=== PATIENT | female | born 1950 | race Caucasian/White ===

== ENCOUNTER → 2017-11-14 | Outpatient (CLI) | payer OTHER ==
[~2017-11-14] MED LIST: ACET-1325; ATEN50TA8 PO; OFLO0.3S OP; PRED1SUS3 OPL; RANI300T PO
--- NOTE | 2017-11-15 07:53 | MAMMOGRAPHY REPORT ---
BILATERAL DIGITAL SCREENING MAMMOGRAM TOMOSYNTHESIS WITH CAD: 11/14/2017 CLINICAL HISTORY: Routine screening. Patient has no complaints. TECHNIQUE: Breast tomosynthesis in addition to standard 2D mammography was performed. Current study was also evaluated with a Computer Aided Detection (CAD) system. COMPARISON: Comparison is made to exams dated: 09/21/2016 mammogram, 09/19/2015 mammogram, 4 mammogram, 09/13/2013 mammogram, 09/12/2012 mammogram, and 09/02/2011 mammogram - [facility]. BREAST COMPOSITION: There are scattered areas of fibroglandular density in both breasts. FINDINGS: The parenchymal pattern is unchanged. No developing mass, architectural distortion or clus ter of suspicious microcalcifications is seen in either breast. IMPRESSION: ACR BI-RADS CATEGORY 2: BENIGN There is no mammographic evidence of malignancy. A 1 year screening mammogram is recommended. The pa tient will receive written notification of the results. Approximately 10% of breast cancers are not detected with mammography. A negative mammographic report should not delay biopsy if a clinically suggestive mass is present. Kelsey Dsouza M.D. ay/:11/14/2017 15:24:46 Acute Care Occupational Therapist: Chantell Espinoza, [facility] letter sent: Normal 1/2 BI-RADS Code: ACR BI-RADS Category 2: Benign
== END | disposition home or self-care (01) ==
LOC: C.MAMM 14:32
PROVIDERS: ATTEND Family Medicine
DX: Z12.31 Encounter for screening mammogram for malignant neoplasm of breast (principal)

== ENCOUNTER → 2017-11-22 | Outpatient (CLI) | payer OTHER ==
[2017-11-22 12:37] LABS: ALBUMIN 3.8 gm/dl (3.4-5.0); ALT/SGPT 33 U/L (12-78); BLOOD UREA NITROGEN 16 mg/dl (7-18); CALCIUM 9.2 mg/dl (8.5-10.1); CARBON DIOXIDE 30 mmol/L (21-32); CHOLESTEROL 176 mg/dl (0-200); CREATININE 0.75 mg/dl (0.60-1.20); GLUCOSE 77 mg/dl (70-99); POTASSIUM 4.1 mmol/L (3.5-5.1); SODIUM 140 mmol/L (136-145)
[2017-11-22 12:40] LABS: ALKALINE PHOSPHATASE 48 U/L (45-117); AST/SGOT 31 U/L (15-37); LDL CHOLESTEROL CALCULATED 79 mg/dl; TOTAL PROTEIN 6.9 gm/dl (6.4-8.2)
== END | disposition home or self-care (01) ==
LOC: C.LAB 11:06
PROVIDERS: ATTEND Family Medicine
DX: Z00.00 Encounter for general adult medical examination without abnormal findings (principal)

== ENCOUNTER 2023-08-17 10:33 | Inpatient (IN) ==
--- NOTE | 2023-08-17 11:20 | Emergency Department Note ---
Impression & Plan Neutropenia with fever ED Provider Note NAME: LEIGHANN HARTMAN AGE: 73 SEX: F : 1950 ARRIVES VIA: Walk-In INFORMANT: Patient, ED PROVIDER(S): Bryce Chan MD CHIEF COMPLAINT: Fever HPI: This is a 73-year-old female with history of B-cell lymphoma currently on chemotherapy presenting for fever. Patient also complains of weakness but otherwise no significant other symptoms. She states that she has a fever up to 101.3 as reported by the . This via oral thermometer. He notes other temperatures of about 100 as well as 99 yesterday as well. She take antipyretics yesterday helping her temperature down. This morning she did not take any antipyretics and noted temperatures at 99. She does not note any shaking chills, nausea, vomiting, diarrhea, shortness breath, chest pain, dysuria, hematuria, sinus congestion, sore throat. ROS: See above HPI for pertinent positives & negatives. A total of 10 systems reviewed and were otherwise negative. PAST MEDICAL HISTORY: See Below PAST SURGICAL HISTORY: See Below FAMILY HISTORY: See Below SOCIAL HISTORY: See Below HOME MEDICATIONS: See Below ALLERGIES: See Below VITALS: See Below PHYSICAL EXAMINATION: General: resting comfortably in no acute distress Head: Normocephalic and atraumatic Eyes: Normal inspection, extraocular muscles intact, no conjunctival pallor Ear, nose, throat: Normal external exam Neck: Normal range of motion Respiratory: Patient is in no respiratory distress, lungs clear to auscultation bilaterally Cardiovascular: RRR without murmur appreciated, left chest port noted, no erythema or pus surrounding GI: soft, nontender, no guarding or rebound Extremities: pulses intact with good cap refills, no LE pitting edema or calf tenderness Neuro: The patient awake and alert, appropriately conversive,no focal decifits Skin: Warm, dry, and intact MEDICAL DECISION MAKING: This is a 73 YO F presenting for fever. Patient does have B-cell lymphoma, recently started chemotherapy about 9 days ago. Patient is within window for new pain and fever. We will get further work-up to evaluate for neutropenia and any signs of infection. Blood cultures are sent including cultures from her new port. Patient's blood does confirm neutropenia, WBC count 0.8, ANC is 0.25. Otherwise blood work was reassuring. CBC does actually confirm Toxic granulation and Dohle bodies. Patient's viral panel is negative at this time. Pending urinalysis. Chest Xray reviewed by me, showing no pneumothorax, focal opacity, but does show pleural effusion bilaterally, small We will admit patient for neutropenic fever at this time. Triage Nursing notes reviewed. Prior medical records reviewed Vital Signs: reviewed and remarkable for no significant abnormalities Differential diagnosis: Neutropenic fever, sepsis ER treatment provided: See below Diagnostics interpreted by me: ECG: ECG reviewed by me with normal sinus rhythm, rate of 99, normal axis, normal DC, normal QRS, normal QTc, no ST segment elevations consistent with STEMI criteria Cardiac Monitoring: An order was placed for continuous cardiac monitoring. The monitor shows a rate of 76 with sinus rhythm. Laboratory studies: As stated above and show below. Imaging studies: See below. Radiographic imaging was reviewed by myself Consultation(s): None Past Med/Surg History Medical History (Updated 08/17/23 @ 19:41 by Bryce Chan MD) Arthritis Chronic steroid use GERD (gastroesophageal reflux disease) History of COVID-19 05/06/23 tested positive, moderate symptoms and treated with paxlovid. no current issues. Lymphoma dx 07/2023 Macular degeneration Papilloma of breast hx Surgical History (Updated 08/09/23 @ 08:20 by Roshni Phillips RN) H/O colonoscopy History of biopsy abdominal biopsy with CT 07/2023 at [facility] [place] History of surgery exc of papilloma Port-A-Cath in place (08/09/23) Insertion Access Port Left Subclavian with Fluoroscopy(Left) - Ruslan Simpson DO Family History Mother Colorectal cancer Father Diabetes Hypertension Stroke Social History Smoking Status: Never smoker Second Hand Exposure: No; Do You Dip or Chew Tobacco: No; Hx Alcohol Use: No Hx Substance Use: No Preferred Language: Hebrew Communication Ability: Effective Technical Project Lead Required: No Beliefs That Will Affect Care: None marital status: Current Living Situation: Spouse current occupational status: retired How many Children do You have: 2 Other Information That Helps Us Care for You: No Feels Safe at Home: Yes Safety Concerns: Feels Safe At This Time Diet: regular during the past year weight has: remained stable Assistive Devices: Glasses Allergies Allergies Allergy/AdvReac Type Severity Reaction Status Date / Time No Known Allergies Allergy Mild Verified 08/17/23 14:29 Home Meds Home Medications Medication Instructions Recorded Confirmed esomeprazole magnesium 40 mg 40 mg PO QAM 07/10/23 08/17/23 capsule,delayed release magnesium oxide 400 mg PO QAM 07/10/23 08/17/23 allopurinol 300 mg tablet See Rx Instructions .Route .COMPLEX 08/17/23 08/17/23 furosemide 20 mg tablet 20 mg PO .TUESDAY AND Tuesday08/17/23 08/17/23 Results & Data (ED) Vital Signs Vital Signs - 24 hr 08/17/23 10:48 08/17/23 11:21 08/17/23 10:50 Temperature 36.6 C Temperature Source Temporal Artery Scan Pulse Rate 85 87 85 Pulse Rate from SpO2 Sensor 85 Respiratory Rate 24 16 Respiratory Effort / Characteristics Non-Labored Respiratory Depth Normal Respiratory Pattern Regular Blood Pressure 128/70 128/70 Blood Pressure Mean 89 89 Pulse Oximetry 99 98 Oxygen Delivery Method Room Air Sepsis Recent Fever Within 48 Hours Yes Sepsis New/Unexplained Change in Mental Status N/A Sepsis Action Taken by Nursing No Action Required 08/17/23 12:24 Temperature Temperature Source Pulse Rate 87 Pulse Rate from SpO2 Sensor 87 Respiratory Rate 17 Respiratory Effort / Characteristics Respiratory Depth Respiratory Pattern Blood Pressure 134/70 Blood Pressure Mean 91 Pulse Oximetry 99 Oxygen Delivery Method Sepsis Recent Fever Within 48 Hours Sepsis New/Unexplained Change in Mental Status Sepsis Action Taken by Nursing Laboratory Data 08/17/23 11:31 08/17/23 11:31 Lab Results 08/17/23 08/17/23 08/17/23 Range/Units 11:31 11:31 11:35 WBC 0.80 L* (4.8-10.8) K/ul RBC 3.03 L (4.20-5.40) M/uL Hgb 9.5 L (12.0-16.0) g/dl Hct 28.4 L (37.0-47.0) % MCV 93.7 (80.0-100.0) fL MCH 31.4 (25.0-34.0) pg MCHC 33.5 (32.0-36.0) g/dL RDW Std Deviation 48.8 H (36.4-46.3) fL RDW Coeff of Elena 14.2 (11.5-14.5) % Plt Count 125 L (130-400) K/uL MPV 11.5 (9.4-12.4) fL Immature Gran % (Auto) 6.3 % Neut % (Auto) 31.1 % Lymph % (Auto) 37.5 % Leslie % (Auto) 16.3 % Eos % (Auto) 6.3 % Baso % (Auto) 2.5 % Neut # (Auto) 0.25 L* (1.40-6.50) K/uL Lymph # (Auto) 0.30 L (1.20-3.40) K/uL Leslie # (Auto) 0.13 (0.11-0.59) K/uL Eos # (Auto) 0.05 (0.00-0.50) K/uL Baso # (Auto) 0.02 (0.00-0.20) K/uL Immature Gran # (Auto) 0.05 (0.01-0.20) K/uL Toxic Granulation 1+ Dohle Bodies 2+ Sodium 134 L (136-145) mmol/L Potassium 4.0 (3.5-5.1) mmol/L Chloride 101 (98-107) mmol/L Carbon Dioxide 26 (21-32) mmol/L Anion Gap 7 (3-11) BUN 17 (6-23) mg/dl Creatinine 0.52 L (0.6-1.2) mg/dl Est Cr Clr Drug Dosing 94.9 ml/min Est GFR ( Amer) 109.9 ml/min Est GFR (Non-Af Amer) 94.8 ml/min BUN/Creatinine Ratio 32.7 H (10-20) Glucose 79 (70-99(Fasting)) mg/dl Lactate 0.7 (0.4-2.0) mmol/L Uric Acid 2.6 (2.6-7.2) mg/dl Calcium 8.5 L (8.6-10.3) mg/dl Magnesium 2.0 (1.7-2.4) mg/dl Total Bilirubin 0.9 (0.2-1.0) mg/dl AST 20 (13-39) U/L ALT 9 (7-52) U/L Alkaline Phosphatase 59 (34-104) U/L Total Protein 5.6 L (6.0-8.3) gm/dl Albumin 3.1 L (3.4-5.0) gm/dl Globulin 2.5 (2.5-4.0) gm/dl Albumin/Globulin Ratio 1.2 (0.9-2) Adenovirus (PCR) (NotDetected) B. pertussis DNA (PCR) (NotDetected) B.parapertussis DNA PCR (NotDetected) C. pneumoniae DNA (PCR) (NotDetected) Coronavirus OC43 (PCR) (NotDetected) Coronavirus HKU1 (PCR) (NotDetected) Coronavirus 229E (PCR) (NotDetected) SARS-CoV-2 (PCR) (NotDetected) Coronavirus NL63 (PCR) (NotDetected) Human Metapneumovir PCR (NotDetected) Influenza Type A (PCR) (NotDetected) Influenza Type B (PCR) (NotDetected) M. pneumoniae (PCR) (NotDetected) Parainfluenza 1 (PCR) (NotDetected) Parainfluenza 2 (PCR) (NotDetected) Parainfluenza 3 (PCR) (NotDetected) Parainfluenza 4 (PCR) (NotDetected) RSV (PCR) (NotDetected) Entero/Rhino (PCR) (NotDetected) 08/17/23 Range/Units 11:44 WBC (4.8-10.8) K/ul RBC (4.20-5.40) M/uL Hgb (12.0-16.0) g/dl Hct (37.0-47.0) % MCV (80.0-100.0) fL MCH (25.0-34.0) pg MCHC (32.0-36.0) g/dL RDW Std Deviation (36.4-46.3) fL RDW Coeff of Elena (11.5-14.5) % Plt Count (130-400) K/uL MPV (9.4-12.4) fL Immature Gran % (Auto) % Neut % (Auto) % Lymph % (Auto) % Leslie % (Auto) % Eos % (Auto) % Baso % (Auto) % Neut # (Auto) (1.40-6.50) K/uL Lymph # (Auto) (1.20-3.40) K/uL Leslie # (Auto) (0.11-0.59) K/uL Eos # (Auto) (0.00-0.50) K/uL Baso # (Auto) (0.00-0.20) K/uL Immature Gran # (Auto) (0.01-0.20) K/uL Toxic Granulation Dohle Bodies Sodium (136-145) mmol/L Potassium (3.5-5.1) mmol/L Chloride (98-107) mmol/L Carbon Dioxide (21-32) mmol/L Anion Gap (3-11) BUN (6-23) mg/dl Creatinine (0.6-1.2) mg/dl Est Cr Clr Drug Dosing ml/min Est GFR ( Amer) ml/min Est GFR (Non-Af Amer) ml/min BUN/Creatinine Ratio (10-20) Glucose (70-99(Fasting)) mg/dl Lactate (0.4-2.0) mmol/L Uric Acid (2.6-7.2) mg/dl Calcium (8.6-10.3) mg/dl Magnesium (1.7-2.4) mg/dl Total Bilirubin (0.2-1.0) mg/dl AST (13-39) U/L ALT (7-52) U/L Alkaline Phosphatase (34-104) U/L Total Protein (6.0-8.3) gm/dl Albumin (3.4-5.0) gm/dl Globulin (2.5-4.0) gm/dl Albumin/Globulin Ratio (0.9-2) Adenovirus (PCR) Not Detected (NotDetected) B. pertussis DNA (PCR) Not Detected (NotDetected) B.parapertussis DNA PCR Not Detected (NotDetected) C. pneumoniae DNA (PCR) Not Detected (NotDetected) Coronavirus OC43 (PCR) Not Detected (NotDetected) Coronavirus HKU1 (PCR) Not Detected (NotDetected) Coronavirus 229E (PCR) Not Detected (NotDetected) SARS-CoV-2 (PCR) Not Detected (NotDetected) Coronavirus NL63 (PCR) Not Detected (NotDetected) Human Metapneumovir PCR Not Detected (NotDetected) Influenza Type A (PCR) Not Detected (NotDetected) Influenza Type B (PCR) Not Detected (NotDetected) M. pneumoniae (PCR) Not Detected (NotDetected) Parainfluenza 1 (PCR) Not Detected (NotDetected) Parainfluenza 2 (PCR) Not Detected (NotDetected) Parainfluenza 3 (PCR) Not Detected (NotDetected) Parainfluenza 4 (PCR) Not Detected (NotDetected) RSV (PCR) Not Detected (NotDetected) Entero/Rhino (PCR) Not Detected (NotDetected) Administered Medications Discontinued Medications Allopurinol (Allopurinol 300 Mg Tab) 300 mg PO NOW STA Stop: 08/17/23 14:59 Last Admin: 08/17/23 16:53 Dose: 300 mg Documented By: SHABBIR Heparin Sodium (Porcine) (Heparin 100 Unit/Ml 5ml Flush) Confirm Administered Dose 5 ml .ROUTE .[facility] Stop: 08/17/23 15:59 Last Admin: 08/17/23 16:53 Dose: Not Given Documented By: SHABBIR Ceftriaxone Sodium 2,000 mg/ (Dextrose) 50 mls @ 100 mls/hr IV NOW STA; Protocol Stop: 08/17/23 14:27 Last Admin: 08/17/23 14:20 Dose: Not Given Documented By: JF Cefepime HCl 2,000 mg/ Syringe 20 mls @ 5 mls/min IV NOW STA; Protocol Stop: 08/17/23 14:02 Last Admin: 08/17/23 14:24 Dose: 5 mls/min Documented By: JF Polyethylene Glycol (Polyethylene (Miralax) 17 Gm Pack) 17 gm PO DAILY ONE Stop: 08/17/23 15:07 Last Admin: 08/17/23 16:53 Dose: Not Given Documented By: SHABBIR Senna/Docusate Sodium (Docusate Sodium/Senna 50/8.6mg Tab) 1 tab PO NOW STA Stop: 08/17/23 15:07 Last Admin: 08/17/23 16:53 Dose: Not Given Documented By: TRB Imaging Data Radiologist's Impression: Chest X-Ray 08/17/23 11:15 XR chest 1V portable CLINICAL HISTORY: Fever TECHNIQUE: Single frontal radiograph of the chest was obtained. Comparison: Comparison is made to chest radiograph 08/09/2023 FINDINGS: A port catheter is seen. Cardiomegaly is noted. The aortic arch is calcified. The lungs are clear. Incidental note is made of cholelithiasis. Possible trace bilateral pleural effusions. IMPRESSION: No evidence of pneumonia. Possible trace bilateral pleural effusions. ACT 112: Negative or not required by law. Electronically signed by: Kyle Flores M.D. 08/17/2023 11:56 AM Discharge Plan Visit Data Chief Complaint: Fever Stated Complaint: FEVER POST CHEMO,DOC REF,LITTER ED Provider: Bryce Chan Discharge Problem: Neutropenia with fever Patient Disposition: Admitted As Inpatient Discharge Instructions Interventions: ED Discharge Assessment Last Done: 08/17/23 15:08
--- NOTE | 2023-08-17 11:58 | XRay Report ---
XR chest 1V portable CLINICAL HISTORY: Fever TECHNIQUE: Single frontal radiograph of the chest was obtained. Comparison: Comparison is made to chest radiograph 08/09/2023 FINDINGS: A port catheter is seen. Cardiomegaly is noted. The aortic arch is calcified. The lungs are clear. In cidental note is made of cholelithiasis. Possible trace bilateral pleural effusions. IMPRESSION: No evidence of pneumonia. Possible trace bilateral pleural effusions. ACT 112: Negative or not required by law. Electronically signed by: Kyle Flores M.D. 08/17/2023 11:56 AM
[2023-08-17 12:11] LABS: Albumin Globulin Ratio 1.2 (0.9-2); Albumin Level 3.1 gm/dl (3.4-5.0); BUN Creatinine Ratio 32.7 (10-20); Bilirubin,Total 0.9 mg/dl (0.2-1.0); Calcium 8.5 mg/dl (8.6-10.3); Creatinine Clr Calc Pharmacy 94.9 ml/min; Est GFR (African American) 109.9 ml/min; Est GFR (Non-African American) 94.8 ml/min; Globulin 2.5 gm/dl (2.5-4.0); Total Protein 5.6 gm/dl (6.0-8.3)
[2023-08-17 12:14] LABS: Hematocrit (blood only) 28.4 % (37.0-47.0); Hemoglobin 9.5 g/dl (12.0-16.0); Mean Corpuscular Hemoglobin 31.4 pg (25.0-34.0); Mean Corpuscular Hgb Conc 33.5 g/dL (32.0-36.0); Mean Corpuscular Volume 93.7 fL (80.0-100.0); Mean Platelet Volume 11.5 fL (9.4-12.4); Platelet Count 125 K/uL (130-400); RDW Coefficient of Variation 14.2 % (11.5-14.5); RDW Standard Deviation 48.8 fL (36.4-46.3); Red Blood Count 3.03 M/uL (4.20-5.40)
[2023-08-17 12:18] LABS: Basophils # (auto) 0.02 K/uL (0.00-0.20); Basophils % (auto) 2.5 %; Dohle Bodies 2+; Eosinophils # (auto) 0.05 K/uL (0.00-0.50); Eosinophils % (auto) 6.3 %; Immature Granulocytes # (auto) 0.05 K/uL (0.01-0.20); Immature Granulocytes % (auto) 6.3 %; Lymphocytes % (auto) 37.5 %; Monocytes # (auto) 0.13 K/uL (0.11-0.59); Monocytes % (auto) 16.3 %; Neutrophils # (auto) 0.25 K/uL (1.40-6.50); Neutrophils % (auto) 31.1 %; Toxic Granulation 1+
[2023-08-17 12:44] LABS: Adenovirus PCR Not Detected (NotDetected); Bordetella parapertussis PCR Not Detected (NotDetected); Bordetella pertussis PCR Not Detected (NotDetected); Chlamydia pneumoniae PCR Not Detected (NotDetected); Coronavirus 229E PCR Not Detected (NotDetected); Coronavirus CoV-2 (COVID19)PCR Not Detected (NotDetected); Coronavirus HKU1 PCR Not Detected (NotDetected); Coronavirus NL63 PCR Not Detected (NotDetected); Coronavirus OC43PCR Not Detected (NotDetected); Human Metapneumovirus PCR Not Detected (NotDetected); Influenza A PCR Not Detected (NotDetected); Influenza B PCR Not Detected (NotDetected); Mycoplasma pneumoniae PCR Not Detected (NotDetected); Parainfluenza Virus 1 PCR Not Detected (NotDetected); Parainfluenza Virus 2 PCR Not Detected (NotDetected); Parainfluenza Virus 3 PCR Not Detected (NotDetected); Parainfluenza Virus 4 PCR Not Detected (NotDetected); Respiratory Syncytial VirusPCR Not Detected (NotDetected); Rhinovirus/Enterovirus PCR Not Detected (NotDetected)
[2023-08-17] MEDS ORDERED: cefTRIAXone SODIUM 2,000 MG in DEXTROSE 5 % MINI-B 50 ML IV STA (13:58)
[2023-08-17] MEDS ORDERED: CEFEPIME 2,000 MG in SYRINGE 0 ML IV STA (13:59)
--- NOTE | 2023-08-17 14:26 | History & Physical Report ---
Date of Service August 17, 2023 Assessment & Plan (1) Febrile neutropenia: Plan: -Admit to med/surge -Currently stable and non-toxic appearing -Has been experiencing progressive generalized weakness this week with a fever of 101.2F yesterday evening -Had her mediport placed on 08/09 with first round of R-Chop therapy on 08/10 -At this time there is no obvious source of infection, chest xray is clear, no URI/respiratory symptoms, no recent urinary or gastrointestinal symptoms, no signs of skin infection, full respiratory biofire is negative -UA will be collect shortly, will follow up, blood cultures have been obtained -S/P one dose of Cefepime in the ED, will continue with Cefepime at this time -Oncology consult has been placed, appreciate their assistance -Continue to monitor for signs of infection and fever curve -Her mediport does not appear infected at this time, have asked nursing staff to place separate peripheral IV at this time until we rule out infection/source -Neutropenic precautions ordered -SQ Lovenox for DVT PPX as her Hgb/platelets are currently stable, she is without bleeding and high risk for DVT with active cancer -Regular diet -AM CBC, CMP, Mag, PT/INR (2) B-cell lymphoma: Plan: -Recently diagnosed -S/P first round of R-CHOP therapy on 08/10 -Oncology consult placed, appreciate their assistance -Will add on uric acid level and continue allopurinol as she is to complete a 10 day course with first dose on 08/10 (3) Pancytopenia: Plan: -Likely due to recent R-Chop therapy -Currently stable, no signs of bleeding -Continue to follow daily CBC (4) Constipation: Plan: -No BM since 08/14 -Patient denies nausea/vomiting and abd pain -Has not passed gas today -Patient and think abd distention is slightly improved since first round of R-CHOP -Will obtain KUB to monitor for obstruction -Will start BID miralax and Senokot for now, patient is willing to try suppository or enema if oral regimen is unsuccessful (5) Weakness: Plan: -Likely multifactorial including pancytopenia, recent chemotherapy, active malignancy, and poor oral intake -Continue cefepime, monitor infectious workup -PT/OT consults placed (6) GERD (gastroesophageal reflux disease): Plan: -Conitnue PPI Plan The patient was discussed with Dr. 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 Per the ED, the patient was supposed to undergo bone marrow biopsy today which was canceled due to her acute symptoms. In the ED she remained stable and afebrile. Labs were significant for pancytopenia with WBC of 0.8, absolute neutrophil count of 0.25, platelets of 125, and hgb of 9.5 (down from 11.8 as of 08/08), sodium of 134, and full respiratory biofire negative. Chest xray was read as "No evidence of pneumonia. Possible trace bilateral pleural effusions.". Prior to admission the patient was given a dose of Cefepime. At the time of the exam the patient was sitting in bed in no acute distress with her sitting bedside, history was obtained from both. They confirm that her mediport was placed on 08/10 with her first round of R-Chop therapy on 08/10. Since 08/13 the patient has been experiencing progressive generalized weakness, poor oral intake, and a fever of 101.2F yesterday evening. The patient denies recent URI symptoms, sore throat, SOB, cough, chest pain, abd pain, nausea, vomiting diarrhea, dysuria, hematuria, melena, recent skin tears/abrasions/wounds, and recent trauma. She has not had a bowel movement since 08/14 and does not believe that she has passed gas today. She denies current abdominal pain and states that her abdominal swelling has slightly improved since her first dose of chemotherapy. She did not have any of her medications today. We discussed code status, the patient is a full code and would want her to make medical decisions for her if she could not make them herself. Please refer to Dr. Bojorquez's attestation for any changes to the treatment plan Allergies Allergy/AdvReac Type Severity Reaction Status Date / Time No Known Allergies Allergy Mild Verified 08/17/23 14:29 Home Medications Medication Instructions Recorded Confirmed Type esomeprazole magnesium 40 mg 40 mg PO QAM 07/10/23 08/17/23 History capsule,delayed release magnesium oxide 400 mg PO QAM 07/10/23 08/17/23 History allopurinol 300 mg tablet See Rx Instructions .Route .COMPLEX 08/17/23 08/17/23 History furosemide 20 mg tablet 20 mg PO .TUESDAY AND Tuesday08/17/23 08/17/23 History Past Med/Surg History Medical History (Updated 08/17/23 @ 19:41 by Bryce Chan MD) Arthritis Chronic steroid use GERD (gastroesophageal reflux disease) History of COVID-19 05/06/23 tested positive, moderate symptoms and treated with paxlovid. no current issues. Lymphoma dx 07/2023 Macular degeneration Papilloma of breast hx Surgical History (Updated 08/09/23 @ 08:20 by Roshni Phillips RN) H/O colonoscopy History of biopsy abdominal biopsy with CT 07/2023 at [facility] History of surgery exc of papilloma Port-A-Cath in place (08/09/23) Insertion Access Port Left Subclavian with Fluoroscopy(Left) - Ruslan Simpson DO Family History Mother Colorectal cancer Father Diabetes Hypertension Stroke Social History Smoking Status: Never smoker Second Hand Exposure: No; Do You Dip or Chew Tobacco: No; Hx Alcohol Use: No Hx Substance Use: No Preferred Language: [place] Communication Ability: Effective 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 Beliefs That Will Affect Care: None marital status: Current Living Situation: Spouse current occupational status: retired How many Children do You have: 2 Other Information That Helps Us Care for You: No Feels Safe at Home: Yes Safety Concerns: Feels Safe At This Time Diet: regular during the past year weight has: remained stable Assistive Devices: None Physical Exam Physical Exam: Physical Exam: General: In no acute distress, stated age, well-nourished, non-0toxic appearing HEENT: Normocephalic, atraumatic, no scleral icterus, pupils around round, symmetrical, and reactive to light, moist mucus membranes, trachea midline, no t hyromegaly Chest/Pulm: No respiratory distress, symmetrical chest expansion, clear breath sounds throughout Cardiac: RRR, no murmurs noted Abdomen: Distended but without signs of ruising/bleeding, hyperactive bowel sounds, mildly firm, non-tender to palpation throughout Musculoskeletal: Symmetrical and without signs of acute trauma, upper and lower extremities with full ROM, no atrophy, spasticity, or flaccidity Extremities: Radial, dorsalis pedis, and posterior tibial pulses are intact and symmetrical, 3+ pitting edema noted in the BL LE's Skin: Warm, dry, no rashes , lesions, or scars noted Neuro: Alert and oriented to person, place, month, year, and president, no focal defects, no tremors noted Psych: No acute distress, calm and cooperative during the exam Results & Data Results & Data Vital Signs (Past 12 Hours) Vital Signs Temp Pulse Resp BP Pulse Ox O2 Del Method 08/17/23 12:24 87 17 134/70 99 08/17/23 10:50 85 16 128/70 98 08/17/23 11:21 87 08/17/23 10:48 36.6 C 85 24 128/70 99 Room Air Laboratory Results Abnormal lab results 08/17/23 08/17/23 Range/Units 11:31 11:31 WBC 0.80 L* (4.8-10.8) K/ul RBC 3.03 L (4.20-5.40) M/uL Hgb 9.5 L (12.0-16.0) g/dl Hct 28.4 L (37.0-47.0) % RDW Std Deviation 48.8 H (36.4-46.3) fL Plt Count 125 L (130-400) K/uL Neut # (Auto) 0.25 L* (1.40-6.50) K/uL Lymph # (Auto) 0.30 L (1.20-3.40) K/uL Sodium 134 L (136-145) mmol/L Creatinine 0.52 L (0.6-1.2) mg/dl BUN/Creatinine Ratio 32.7 H (10-20) Calcium 8.5 L (8.6-10.3) mg/dl Total Protein 5.6 L (6.0-8.3) gm/dl Albumin 3.1 L (3.4-5.0) gm/dl Diagnostic Findings Chest X-Ray 08/17/23 11:15 XR chest 1V portable CLINICAL HISTORY: Fever TECHNIQUE: Single frontal radiograph of the chest was obtained. Comparison: Comparison is made to chest radiograph 08/09/2023 FINDINGS: A port catheter is seen. Cardiomegaly is noted. The aortic arch is calcified. The lungs are clear. Incidental note is made of cholelithiasis. Possible trace bilateral pleural effusions. IMPRESSION: No evidence of pneumonia. Possible trace bilateral pleural effusions. ACT 112: Negative or not required by law. Electronically signed by: Kyle Flores M.D. 08/17/2023 11:56 AM ECG Additional Comments: Will obtain at the time of admission Code Status & VTE Plan Code Status Full code VTE Prophylaxis Plan VTE Prophylaxis will be ordered: Yes Supervising Physician Co-Signing Physician Notes I personally saw and examined the patient. I verified all gtz points and agree with Jonatan George PA-C with the following exceptions and/or additions: 73 year old female with B cell lymphoma on R-CHOP presents to the ER with fever started yesterday evening. No URI symptoms, new abdominal symptoms. Constipation noted. O/E Cachectic, HS RRR, no murmurs, Chest CTAB, Abdo distended but soft, non tender, no CVA tenderness A/P Neutropenic fever - isolation precautions, consult oncology to consider Neulasta, IV cefepime pending blood culture results. No infection seen on CXR, UA. No abdominal pain/diarrhea to suggest imaging - pt reports distension actually improving. PG Care Time/CCT Total # of Minutes Spent Total Time Spent with Patient: Total time spent is greater than 50% in coordination of care (as documented) at patient's floor/unit and/or counseling patient: [place] [address] INT INP/OBS CARE 2/55MIN Patient Type Established Medical Decision Making Moderate Complexity Diagnoses Febrile neutropenia D70.9; R50.81 B-cell lymphoma C85.10 Pancytopenia D61.818 Constipation K59.00 Weakness R53.1 GERD (gastroesophageal reflux disease) K21.9
[2023-08-17 14:54] LABS: Uric Acid 2.6 mg/dl (2.6-7.2)
[2023-08-17] MEDS ORDERED: allopurinoL 300 MG TAB PO STA (14:58)
[2023-08-17] MEDS ORDERED: DOCUSATE SODIUM/SENNA 50/8.6MG TAB PO STA (15:06)
[2023-08-17] MEDS ORDERED: POLYETHYLENE (MIRALAX) 17 GM PACK PO ONE (15:06)
[2023-08-17] MEDS ORDERED: HEPARIN 100 UNIT/ML 5ML FLUSH ONE (15:58)
--- NOTE | 2023-08-17 16:45 | XRay Report ---
KUB CLINICAL HISTORY: Abdominal distention. Constipation. COMPARISON STUDY: CT of the abdomen and pelvis July 10, 2023. PET/CT July 27, 2023. FINDINGS: Prominent gas-filled loops of small bowel measure up to 2.6 cm in caliber. There is no radi ographic evidence for a bowel obstruction. Moderate amount of stool within the colon is noted. There are gallstones within the gallbladder. Lumbar spine levoscoliosis is incidentally noted. IMPRESSION: 1. Prominent gas-filled loops of small bowel without convincing evidence for a bowel obstruction. 2. Moderate amount of stool within the colon. 3. Cholelithiasis. ACT 112: Negative or not required by law. Electronically signed by: Tobi Sullivan M.D. 08/17/2023 4:42 PM
--- NOTE | 2023-08-17 19:06 | Oncology Consultation ---
Date of Consultation August 17, 2023 Assessment & Plan (1) Febrile neutropenia: (2) B-cell lymphoma: (3) Abdominal distension: (4) Lymphoma: Plan - Agree with work-up including blood cultures, urinalysis with reflex to culture as well as treatment with broad-spectrum antibiotics for neutropenic fever. May consider obtaining CT abdomen and pelvis if constipation persists -Regarding neutropenia, although she received G-CSF with Neulasta on body would recommend administering weight-based SC filgrastim 300mcg daily x2 to 3 days. -Bilateral lower extremity ultrasound to rule out DVT Thank you for this consult. We will follow patient peripherally while in the hospital. Please feel free to call if you have any further questions History of Present Illness Reason for Consultation: Neutropenic fever Attending Physician: Juan Bojorquez MD History of Present Illness Pleasant 73-year-old female with follicular lymphoma for which she is s/p 1 cycle of slightly dose reduced R-CHOP administered on 08/10/2023 with Neulasta/G-CSF support. She presented earlier today for outpatient bone marrow biopsy and was found to be very warm to touch. She also reported at that time that she had had fever yesterday with a temperature of 101.3. Given concern for infection, bone marrow biopsy was held and recommended she present to the ED. Labs obtained in the ED revealed Leukopenia with white cell count of 0.8, ANC of 0.25. She was started on broad-spectrum antibiotic for neutropenic fever. Work-up for infection including blood cultures, urinalysis were pending at time of today's visit. Chest x-ray was however negative for pneumonia but revealed possible trace bilateral pleural effusions. KUB which was obtained because of constipation revealed prominent gas-filled loops of small bowel without convincing evidence of bowel obstruction and moderate amount of stool within the colon She complains of chills, significant fatigue, poor oral intake, lower extremity swelling mostly involving right lower extremity. Allergies Allergy/AdvReac Type Severity Reaction Status Date / Time No Known Allergies Allergy Mild Verified 08/17/23 14:29 Home Medications Medication Instructions Recorded Confirmed Type esomeprazole magnesium 40 mg 40 mg PO QAM 07/10/23 08/17/23 History capsule,delayed release magnesium oxide 400 mg PO QAM 07/10/23 08/17/23 History allopurinol 300 mg tablet See Rx Instructions .Route .COMPLEX 08/17/23 08/17/23 History furosemide 20 mg tablet 20 mg PO .TUESDAY AND Tuesday08/17/23 08/17/23 History Patient History Medical History (Updated 08/17/23 @ 15:24 by Jonatan George PA-C) Arthritis Chronic steroid use GERD (gastroesophageal reflux disease) History of COVID-19 05/06/23 tested positive, moderate symptoms and treated with paxlovid. no current issues. Lymphoma dx 07/2023 Macular degeneration Papilloma of breast hx Surgical History (Updated 08/09/23 @ 08:20 by Roshni Phillips, JOLELE) H/O colonoscopy History of biopsy abdominal biopsy with CT 07/2023 at [facility] History of surgery exc of papilloma Port-A-Cath in place (08/09/23) Insertion Access Port Left Subclavian with Fluoroscopy(Left) - Ruslan Simpson DO Family History Mother Colorectal cancer Father Diabetes Hypertension Stroke Social History Smoking Status: Never smoker Second Hand Exposure: No; Do You Dip or Chew Tobacco: No; Hx Alcohol Use: No Hx Substance Use: No Preferred Language: Cam[place]onian Communication Ability: Effective Manager Sign Required: No Beliefs That Will Affect Care: None marital status: Current Living Situation: Spouse current occupational status: retired How many Children do You have: 2 Other Information That Helps Us Care for You: No Feels Safe at Home: Yes Safety Concerns: Feels Safe At This Time Diet: regular during the past year weight has: remained stable Assistive Devices: Glasses Results & Data Vital Signs (Past 12 Hours) Vital Signs Temp Pulse Pulse Resp BP BP Pulse Ox 08/17/23 16:20 37 C 88 20 130/72 96 08/17/23 15:19 86 08/17/23 12:24 87 17 134/70 99 08/17/23 10:50 85 16 128/70 98 08/17/23 11:21 87 08/17/23 10:48 36.6 C 85 24 128/70 99 O2 Del Method 08/17/23 16:20 Room Air 08/17/23 15:19 08/17/23 12:24 08/17/23 10:50 08/17/23 11:21 08/17/23 10:48 Room Air
[2023-08-17 20:09] LABS: Appearance Urine Clear (Clear); Bacteria Urine Automated Negative (Negative); Blood Urine Negative (Negative); Color Urine Orange; Epithelial Cell Urine Auto >30 /lpf (0-5); Glucose Urine UA Negative (Negative); Ketones Urine 4+ (Negative); Leukocyte Esterase Urine Trace (Negative); Nitrite Urine Positive (Negative); Protein Urine 1+ (Negative); Specific Gravity Urine 1.037 (1.000-1.030); Urobilinogen Urine Negative (Negative)
[2023-08-17] MEDS: FILGRASTIM 300 MCG/ML VIAL SQ SCH (20:11)
[2023-08-17] MEDS: ENOXAPARIN INJ 40 MG/0.4 ML SYR SQ SCH (20:12)
[2023-08-17] MEDS: DOCUSATE SODIUM/SENNA 50/8.6MG TAB PO SCH (20:14)
[2023-08-17] MEDS: POLYETHYLENE (MIRALAX) 17 GM PACK PO SCH (20:14)
[2023-08-17 20:17] LABS: Bilirubin Urine 1+ (Negative)
[2023-08-17 20:28] LABS: Mucus Urine Present (None Prsent)
[2023-08-17] MEDS: CEFEPIME 2,000 MG in SYRINGE 0 ML IV SCH (21:55)
--- NOTE | 2023-08-18 02:44 | Ultrasound Report ---
Exam(s): US VENOUS BILATERAL LOWER EXTREMITIES EXAM: US Duplex Bilateral Lower Extremities Veins CLINICAL HISTORY: Reason for exam: Bilateral LE swelling (L>r). TECHNIQUE: Real-time duplex ultrasound scan of the bilateral lower extremity veins integrating B-mode two-dimensional vascular structure, Doppler spectral analysis, color flow Doppler imaging and compression. COMPARISON: 09/18/2022. FINDINGS: Right deep veins: Unremarkable. No DVT in the right common femoral, femoral, proximal deep femoral or popliteal veins. The veins demonstrate normal color flow, are normally compressible, with normal phasic flow and/or augmentation response. Right superficial veins: Unremarkable. No thrombus in the visualized right great saphenous vein. Left deep veins: Unremarkable. No DVT in the left common femoral, femoral, proximal deep femoral or popliteal veins. The veins demonstrate normal color flow, are normally compressible, with normal phasic flow and/or augmentation response. Left superficial veins: Unremarkable. No thrombus in the visualized left great saphenous vein. Soft tissues: No acute findings. No popliteal cyst. IMPRESSION: No ultrasonographic evidence of deep venous thrombosis involving the bilateral lower extremities. Electronically signed by: Kimi Boswell MD 08/18/23 02:43 AM
[2023-08-18] MEDS: CEFEPIME 2,000 MG in SYRINGE 0 ML IV SCH ×3 (06:13→21:00)
[2023-08-18 06:47] LABS: Albumin Level 2.9 gm/dl (3.4-5.0); Bilirubin,Total 0.8 mg/dl (0.2-1.0); Calcium 8.2 mg/dl (8.6-10.3); Magnesium 1.9 mg/dl (1.7-2.4)
[2023-08-18 06:53] LABS: Albumin Globulin Ratio 1.3 (0.9-2); BUN Creatinine Ratio 32.7 (10-20); Creatinine Clr Calc Pharmacy 79.7 ml/min; Est GFR (African American) 109.9 ml/min; Est GFR (Non-African American) 94.8 ml/min; Globulin 2.3 gm/dl (2.5-4.0); Total Protein 5.2 gm/dl (6.0-8.3)
[2023-08-18 07:20] LABS: Prothrombin Time 10.7 Seconds (9.0-12.0)
[2023-08-18 07:26] LABS: Basophils # (auto) 0.06 K/uL (0.00-0.20); Dohle Bodies 2+; Eosinophils # (auto) 0.09 K/uL (0.00-0.50); Eosinophils % (auto) 4.5 %; Hematocrit (blood only) 27.5 % (37.0-47.0); Hemoglobin 9.5 g/dl (12.0-16.0); Immature Granulocytes # (auto) 0.04 K/uL (0.01-0.20); Lymphocytes # (auto) 0.47 K/uL (1.20-3.40); Lymphocytes % (auto) 23.3 %; Mean Corpuscular Hemoglobin 32.1 pg (25.0-34.0); Mean Corpuscular Hgb Conc 34.5 g/dL (32.0-36.0); Mean Corpuscular Volume 92.9 fL (80.0-100.0); Mean Platelet Volume 12.2 fL (9.4-12.4); Monocytes # (auto) 0.31 K/uL (0.11-0.59); Monocytes % (auto) 15.3 %; Neutrophils # (auto) 1.05 K/uL (1.40-6.50); Neutrophils % (auto) 51.9 %; Platelet Count 125 K/uL (130-400); RDW Standard Deviation 47.8 fL (36.4-46.3); Red Blood Count 2.96 M/uL (4.20-5.40); White Blood Count 2.02 K/ul (4.8-10.8)
--- NOTE | 2023-08-18 07:36 | Hospitalist Progress Note ---
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 #Febrile Neutropenia - ANC 0.25 --> 1.05 - CXR negative - Respiratory panel negative - Blood cx negative at 24 hours - UA significant for positive nitrite, trace LE, likely urinary source - Urine cx pending - Continue Cefepime - Neutropenic precautions - Heme/onc consulted, appreciate recs - Start Neupogen 300mcg SC daily x3 days #B-Cell Lymphoma - S/P first round of R-CHOP therapy on 08/10 #Pancytopenia - Presumed secondary to R-CHOP chemotherapy - Follow daily CBC - Heme/onc consulted, recs as above #Constipation - Last bowel movement 08/14 - KUB significant for prominent gas-filled loops of small bowel without convincing evidence for a bowel obstruction, moderate stool burden - BID miralax and Senokot, consider suppository or enema if oral regimen is unsuccessful #Weakness - Likely due to multiple factors, including pancytopenia, chemotherapy, active malignancy, and poor oral intake - PT/OT evaluation #GERD - Continue PPI Diet: Regular VTE ppx: Lovenox Admission and Anticipated Discharge Date Admission Date: August 17, 2023 Supervising Physician Co-Signing Physician Notes Resident Physician Supervision Note: I independently interviewed and examined the patient and verified the gtz history and physical, reviewed labs and image studies and agree with resident findings and care plan. 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 Patient evaluated at bedside this morning, found in NAD. Patient notes that she has been having fevers at home, Tmax 101.1. Afebrile yesterday and today. Also notes that she has been feeling increased fatigue and early satiety. Denies over abdominal pain, denies N/V. Feels constipated, last bowel movement on Tuesday. Denies current chills, dysuria, SOB, CP. Review of Systems Review of Systems: All systems reviewed & are unremarkable except as noted in HPI & below Physical Exam Constitutional: WD/WN, vitals as above + frail appearing; no acute distress Respiratory: normal respiratory effort, lungs clear to auscultation Cardiovascular: RRR, no murmur, no edema Gastrointestinal (Abdomen): Non-distend, nontender, bowel sounds normal. Skin: no rashes, warm and dry Psychiatric: A+Ox3, euthymic affect Results & Data Results & Data Vital Signs (Past 12 Hours) Vital Signs Temp Pulse Resp BP Pulse Ox Pulse Ox O2 Del Method 08/17/23 20:10 Room Air 08/17/23 20:10 93 08/17/23 21:25 36.7 C 93 H 16 124/74 95 Room Air O2 Del Method 08/17/23 20:10 08/17/23 20:10 Room Air 08/17/23 21:25 Laboratory Results Abnormal lab results 08/17/23 08/18/23 08/18/23 Range/Units 19:50 05:47 05:47 WBC 2.02 L (4.8-10.8) K/ul RBC 2.96 L (4.20-5.40) M/uL Hgb 9.5 L (12.0-16.0) g/dl Hct 27.5 L (37.0-47.0) % RDW Std Deviation 47.8 H (36.4-46.3) fL Plt Count 125 L (130-400) K/uL Neut # (Auto) 1.05 L (1.40-6.50) K/uL Lymph # (Auto) 0.47 L (1.20-3.40) K/uL Sodium 134 L (136-145) mmol/L Creatinine 0.52 L (0.6-1.2) mg/dl BUN/Creatinine Ratio 32.7 H (10-20) Calcium 8.2 L (8.6-10.3) mg/dl Total Protein 5.2 L (6.0-8.3) gm/dl Albumin 2.9 L (3.4-5.0) gm/dl Globulin 2.3 L (2.5-4.0) gm/dl Ur Specific Spencer 1.037 H (1.000-1.030) Urine Protein 1+ H (Negative) Urine Ketones 4+ H (Negative) Urine Nitrite Positive A (Negative) Urine Bilirubin 1+ H (Negative) Ur Leukocyte Esterase Trace H (Negative) Urine RBC (Auto) 5-10 H (0-4) /hpf U Hyaline Cast (Auto) 10-30 H (0-5) /lpf U Epithel Cells (Auto) >30 H (0-5) /lpf Urine Mucus Present A (None Prsent) Diagnostic Findings Chest X-Ray 08/17/23 11:15 XR chest 1V portable CLINICAL HISTORY: Fever TECHNIQUE: Single frontal radiograph of the chest was obtained. Comparison: Comparison is made to chest radiograph 08/09/2023 FINDINGS: A port catheter is seen. Cardiomegaly is noted. The aortic arch is calcified. The lungs are clear. Incidental note is made of cholelithiasis. Possible trace bilateral pleural effusions. IMPRESSION: No evidence of pneumonia. Possible trace bilateral pleural effusions. ACT 112: Negative or not required by law. Electronically signed by: Kyle Flores M.D. 08/17/2023 11:56 AM KUB X-Ray 08/17/23 15:10 KUB CLINICAL HISTORY: Abdominal distention. Constipation. COMPARISON STUDY: CT of the abdomen and pelvis July 10, 2023. PET/CT July 27, 2023. FINDINGS: Prominent gas-filled loops of small bowel measure up to 2.6 cm in caliber. There is no radiographic evidence for a bowel obstruction. Moderate amount of stool within the colon is noted. There are gallstones within the gallbladder. Lumbar spine levoscoliosis is incidentally noted. IMPRESSION: 1. Prominent gas-filled loops of small bowel without convincing evidence for a bowel obstruction. 2. Moderate amount of stool within the colon. 3. Cholelithiasis. ACT 112: Negative or not required by law. Electronically signed by: Tobi Sullivan M.D. 08/17/2023 4:42 PM Venous Doppler Study 08/17/23 19:02 Exam(s): US VENOUS BILATERAL LOWER EXTREMITIES EXAM: US Duplex Bilateral Lower Extremities Veins CLINICAL HISTORY: Reason for exam: Bilateral LE swelling (L>r). TECHNIQUE: Real-time duplex ultrasound scan of the bilateral lower extremity veins integrating B-mode two-dimensional vascular structure, Doppler spectral analysis, color flow Doppler imaging and compression. COMPARISON: 09/18/2022. FINDINGS: Right deep veins: Unremarkable. No DVT in the right common femoral, femoral, proximal deep femoral or popliteal veins. The veins demonstrate normal color flow, are normally compressible, with normal phasic flow and/or augmentation response. Right superficial veins: Unremarkable. No thrombus in the visualized right great saphenous vein. Left deep veins: Unremarkable. No DVT in the left common femoral, femoral, proximal deep femoral or popliteal veins. The veins demonstrate normal color flow, are normally compressible, with normal phasic flow and/or augmentation response. Left superficial veins: Unremarkable. No thrombus in the visualized left great saphenous vein. Soft tissues: No acute findings. No popliteal cyst. IMPRESSION: No ultrasonographic evidence of deep venous thrombosis involving the bilateral lower extremities. Electronically signed by: Kimi Boswell MD 08/18/23 02:43 AM Resident Activity Tracking Resident Involvement: Resident Care Provided Care Provided: Adult [facility]
[2023-08-18] MEDS: DOCUSATE SODIUM/SENNA 50/8.6MG TAB PO SCH ×2 (08:25→20:49)
[2023-08-18] MEDS: allopurinoL 300 MG TAB PO SCH (08:25)
[2023-08-18] MEDS: MAGNESIUM OXIDE 400 MG TAB PO SCH (08:26)
[2023-08-18] MEDS: PANTOprazole 40 MG TAB PO SCH (08:26)
[2023-08-18] MEDS: FILGRASTIM 300 MCG/ML VIAL SQ SCH (08:30)
[2023-08-18] MEDS: POLYETHYLENE (MIRALAX) 17 GM PACK PO SCH ×2 (09:10→20:53)
--- NOTE | 2023-08-18 12:52 | Electrocardiogram Report ---
Test Reason : Blood Pressure : / mmHG Vent. Rate : 099 BPM Atrial Rate : 099 BPM P-R Int : 146 ms QRS Dur : 082 ms QT Int : 344 ms P-R-T Axes : 048 001 028 degrees QTc Int : 441 ms Normal sinus rhythm Nonspecific T wave abnormality Anterior leads Abnormal ECG When compared with ECG of 10-JUL-2023 21:49, No significant change was found Confirmed by Luis Carlos Meeks ([id number]) on 08/18/2023 12:51:51 PM Referred By: REFERRED SELF Confirmed By:Luis Carlos Meeks
[2023-08-18] MEDS: ENOXAPARIN INJ 40 MG/0.4 ML SYR SQ SCH (20:48)
[2023-08-19] MEDS: CEFEPIME 2,000 MG in SYRINGE 0 ML IV SCH (05:18)
[2023-08-19 07:08] LABS: Prothrombin Time 11.2 Seconds (9.0-12.0)
[2023-08-19 07:13] LABS: Albumin Globulin Ratio 1.3 (0.9-2); Albumin Level 2.9 gm/dl (3.4-5.0); BUN Creatinine Ratio 28.6 (10-20); Bilirubin,Total 0.5 mg/dl (0.2-1.0); Calcium 8.2 mg/dl (8.6-10.3); Est GFR (African American) 107.2 ml/min; Est GFR (Non-African American) 92.5 ml/min; Globulin 2.2 gm/dl (2.5-4.0); Magnesium 1.8 mg/dl (1.7-2.4); Total Protein 5.1 gm/dl (6.0-8.3)
[2023-08-19] MEDS: PANTOprazole 40 MG TAB PO SCH (07:28)
[2023-08-19] MEDS: DOCUSATE SODIUM/SENNA 50/8.6MG TAB PO SCH (07:33)
[2023-08-19] MEDS: POLYETHYLENE (MIRALAX) 17 GM PACK PO SCH (07:34)
[2023-08-19] MEDS: allopurinoL 300 MG TAB PO SCH (07:34)
[2023-08-19] MEDS: MAGNESIUM OXIDE 400 MG TAB PO SCH (07:34)
[2023-08-19 07:35] LABS: Basophils # (auto) 0.07 K/uL (0.00-0.20); Basophils % (auto) 1.1 %; Dohle Bodies 2+; Eosinophils % (auto) 1.6 %; Hematocrit (blood only) 27.1 % (37.0-47.0); Immature Granulocytes # (auto) 0.34 K/uL (0.01-0.20); Immature Granulocytes % (auto) 5.3 %; Lymphocytes # (auto) 0.53 K/uL (1.20-3.40); Lymphocytes % (auto) 8.3 %; Mean Corpuscular Hemoglobin 31.1 pg (25.0-34.0); Mean Corpuscular Hgb Conc 33.2 g/dL (32.0-36.0); Mean Corpuscular Volume 93.8 fL (80.0-100.0); Mean Platelet Volume 11.8 fL (9.4-12.4); Monocytes # (auto) 0.65 K/uL (0.11-0.59); Monocytes % (auto) 10.2 %; Neutrophils % (auto) 73.5 %; Platelet Count 147 K/uL (130-400); RDW Coefficient of Variation 13.7 % (11.5-14.5); RDW Standard Deviation 47.8 fL (36.4-46.3); Red Blood Count 2.89 M/uL (4.20-5.40); White Blood Count 6.39 K/ul (4.8-10.8)
[2023-08-19] MEDS ORDERED: cephALEXin 500 MG CAP PO STA (11:26)
--- NOTE | 2023-08-19 12:58 | Discharge Summary ---
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 Per the ED, the patient was supposed to undergo bone marrow biopsy today which was canceled due to her acute symptoms. In the ED she remained stable and afebrile. Labs were significant for pancytopenia with WBC of 0.8, absolute neutrophil count of 0.25, platelets of 125, and hgb of 9.5 (down from 11.8 as of 08/08), sodium of 134, and full respiratory biofire negative. Chest xray was read as "No evidence of pneumonia. Possible trace bilateral pleural effusions.". Prior to admission the patient was given a dose of Cefepime. At the time of the exam the patient was sitting in bed in no acute distress with her sitting bedside, history was obtained from both. They confirm that her mediport was placed on 08/10 with her first round of R-Chop therapy on 08/10. Since 08/13 the patient has been experiencing progressive generalized weakness, poor oral intake, and a fever of 101.2F yesterday evening. The patient denies recent URI symptoms, sore throat, SOB, cough, chest pain, abd pain, nausea, vomiting diarrhea, dysuria, hematuria, melena, recent skin tears/abrasions/wounds, and recent trauma. She has not had a bowel movement since 08/14 and does not believe that she has passed gas today. She denies current abdominal pain and states that her abdominal swelling has slightly improved since her first dose of chemotherapy. She did not have any of her medications today. We discussed code status, the patient is a full code and would want her to make medical decisions for her if she could not make them herself. Please refer to Dr. Bojorquez's attestation for any changes to the treatment plan Admission Exam Per Admitting Provider Physical Exam: General:In no acute distress, stated age, well-nourished, non-0toxic appearing HEENT:Normocephalic, atraumatic, no scleral icterus, pupils around round, symmetrical, and reactive to light, moist mucus membranes, trachea midline, no thyromegaly Chest/Pulm:No respiratory distress, symmetrical chest expansion, clear breath sounds throughout Cardiac:RRR, no murmurs noted Abdomen:Distended but without signs of ruising/bleeding, hyperactive bowel sounds, mildly firm, non-tender to palpation throughout Musculoskeletal:Symmetrical and without signs of acute trauma, upper and lower extremities with full ROM, no atrophy, spasticity, or flaccidity Extremities:Radial, dorsalis pedis, and posterior tibial pulses are intact and symmetrical, 3+ pitting edema noted in the BL LE's Skin:Warm, dry, no rashes , lesions, or scars noted Neuro:Alert and oriented to person, place, month, year, and president, no focal defects, no tremors noted Psych:No acute distress, calm and cooperative during the exam Principal Diagnosis Febrile Neutropenia Discharge Exam Constitutional WD/WN, vitals as above Respiratory normal respiratory effort, lungs clear to auscultation Cardiovascular RRR, no murmur, no edema Gastrointestinal (Abdomen) Non-distended, mild tenderness to palpation but without guarding or rigidity, normal bowel sounds Psychiatric A+Ox3, euthymic affect Discharge Data Allergies Allergy/AdvReac Type Severity Reaction Status Date / Time No Known Allergies Allergy Mild Verified 08/17/23 14:29 Consultations 08/17/23 14:56 Consult Oncology Routine 08/17/23 14:57 ED Decision to Admit Stat Ordered Studies 08/17/23 19:02 US venous doppler LE BI Routine Hospital Course (1) Febrile neutropenia: (2) B-cell lymphoma: (3) Abdominal distension: (4) Lymphoma: Plan Pt is a 73 year old female with a PMH significant for 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 #Febrile Neutropenia - ANC 0.25 --> 1.05 --> 6.39 - CXR negative - Respiratory panel negative - Blood cx negative at 48 hours - UA significant for positive nitrite, trace LE, likely urinary source - Urine cx pending at time of discharge - Oncology consulted, patient was given one dose of Neupogen with notable rise in WBC, subsequently discontinued - Neutropenic precautions were in place during hospital stay - Patient discharged with 5-day course of Cephalexin, will contact patient if results of urine culture dictate alteration/discontinuation of abx - Recommend OTC probiotic supplementation #B-Cell Lymphoma - S/P first round of R-CHOP therapy on 08/10 #Constipation - Last bowel movement 08/14 - KUB was significant for prominent gas-filled loops of small bowel without convincing evidence for a bowel obstruction, moderate stool burden - Pt was placed on bowel regimen #Weakness - Likely due to multiple factors, including pancytopenia, chemotherapy, active malignancy, and poor oral intake. Improved at the time of discharge. Total Time Total Time Spent Total Time Spent (In Minutes): see attending attestation Discharge Plan Discharge Items Patient Disposition: Home - Self-Care Reason For Visit: FEBRILE NEUTROPENIA Discharge Diagnosis: Urinary Tract Infection, febrile neutropenia Activity: Resume your previous activity Non-emergency contact: Primary Care Provider and Oncologist Call non-emergency contact if: you have any medication questions, your symptoms worsen and you have a fever Follow-up/Referrals: Mariella Bennett MD [Primary Care Provider] - 08/29/23 3:30 pm (Appointment will be with [address] Diet: Regular Addtl Attending Provider Instructions: You were admitted to the hospital for fever and were found to have a urinary tract infection. You were treated with antibiotics and given a medication to help raise your white blood cell count. A discharge summary will be sent to your primary care physician to ensure continuity of care. Please bring this discharge summary with you to your next office appointment so that your provider can review it at that time. Medications: Your medication list has been reviewed and reconciled upon discharge to ensure accuracy and continuity of care. An updated list of all your medications is included with your hospital discharge paperwork. Please review this list closely and make note of any changes to your medications. - You are being discharged with an antibiotic called Cephalexin, which has been sent to your pharmacy. Please take this medication twice daily for 5 days. - No other changes were made to your medications, please continue to take them as previously directed. Follow up appointments: - Make a follow up appointment with your PCP within the next week. It is very important that you follow up with them shortly after discharge from the hospital. - Keep all of your follow up appointments as already scheduled. If you cannot make an appointment, notify your provider. CONTACT YOUR PRIMARY CARE PROVIDER if you experience any of the following: - Fever - Significant worsening of abdominal pain - Difficulty following your treatment plan - Difficulty taking any of your medications CALL 911 OR GO TO THE EMERGENCY DEPARTMENT if you experience any of the following: - Sudden, severe abdominal pain or nausea/vomiting - Severe chest pain or chest pain that radiates to your jaw or arm - Sudden, severe shortness of breath or difficulty breathing Pending Studies at Discharge: No Stand-Alone Forms: [facility], Smoking Cessation Medications and DC Order Prescriptions: New cephalexin 500 mg capsule 500 mg PO BID 5 Days Qty: 10 0RF Continued esomeprazole magnesium 40 mg capsule,delayed release(DR/EC) 40 mg PO QAM magnesium oxide 400 mg magnesium Tablet 400 mg PO QAM Rx Instructions: PT UNSURE OF STRENGTH furosemide 20 mg tablet 20 mg PO .TUESDAY AND TUESDAY allopurinol 300 mg tablet See Rx Instructions .ROUTE .COMPLEX Rx Instructions: Take 300mg by mouth once daily starting the day before 1st chemotherapy and continue for 10 days. First chemotherapy was 08/10/23 Discharge Orders: Discharge Order (Routine); Ordered 08/19/23 Ordered By: Paul Tucker Admission Data Admit Date/Time: 08/17/23 14:24 Attending Provider: Colleen Rice Admit Provider: Juan Bojorquez Primary Care Provider: Mariella Bennett Other Providers: Celsa Mendoza ; Juan Bojorquez Other Interventions: Discharge Summary Assessment (RN) Last Done: 08/19/23 12:58 Supervising Physician Co-Signing Physician Notes Resident Physician Supervision Note: I independently interviewed and examined the patient and verified the gtz history and physical, reviewed labs and image studies and agree with resident findings and care plan. Resident Activity Tracking Resident Involvement: Resident Care Provided Care Provided: Adult Hospital Medicine
== END 2023-08-19 15:29 | disposition home or self-care (01) | DRG 809 ==
LOC: ED 10:33 → EDINP 14:24 → SUATTDRO 14:24 → 3E 15:08